=== PATIENT | male | born 1965 | race Caucasian/White ===

== ENCOUNTER 2025-02-09 08:28 | Outpatient (AMB) | payer BC, SELFPAY ==
--- NOTE | 2025-02-09 08:33 | MHC.PC.OV ---
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 Accompanied by: Self / Same As Patient Allergies penicillin G Adverse Reaction (Unknown, Verified 02/09/25 08:34) Unknown shellfish derived (shellfish) Adverse Reaction (Unknown, Verified 02/09/25 08:34) Unknown Sulfa (Sulfonamide Antibiotics) Adverse Reaction (Unknown, Verified 02/09/25 08:34) Unknown sulfamethoxazole (From Bactrim) Adverse Reaction (Unknown, Verified 02/09/25 08:34) Unknown trimethoprim (From Bactrim) Adverse Reaction (Unknown, Verified 02/09/25 08:34) Unknown Medication List - Last Reconciled 02/09/25 by April Preciado MD cholecalciferol (vitamin D3) 1,250 mcg PO QWEEK metoprolol tartrate mg PO Saccharomyces boulardii (Daily Probiotic (S. boulardii)) 250 mg PO DAILY simvastatin 20 mg PO BEDTIME Tobacco use date assessed: 02/09/25 Dental Screening Dental Screen Date: 02/09/25 Did you have a dental visit in the last 12 months?: Yes Did you have a dental problem in the last 6 months where you did not have access to dental care?: No Was dental information given to patient?: Patient has dentist HPI HPI Comments History of Present Illness Details The patient is a 59 year old male presenting to re-establish care and for a physical. Hypertension: He has a history of high blood pressure and is on Metoprolol, taking one pill in the evening and a half in the morning. Variable readings recently in setting of having to have dental procedure. Obstructive Sleep Apnea: He has a history of sleep apnea and has been using a CPAP machine. He has been off the CPAP since before due to facial pain following a tooth extraction. He reports feeling like he is sleeping better without it. He notes having a follow-up appointment scheduled with the sleep clinic. Weight Management: He has successfully lost weight, reaching his lowest weight in 20 years at 189 pounds, down from a high of 211 pounds. The weight loss is attributed to dietary changes, specifically caloric restriction and not eating late, which he started around October. Dental Issues: He had a tooth extracted the Saturday before , which caused significant pain. During the extraction, the oral surgeon nicked an adjacent tooth, which will now require a crown. Cellulitis: In November, he was stung by a bee on the arm, and the site would not heal, becoming smooth and shiny. He went to an urgent care clinic where he was diagnosed with cellulitis and treated with a 21-day course of antibiotics. Hearing Loss: He reports hearing trouble in both ears, which is getting worse. A previous hearing evaluation, the only one he has had, showed moderate to severe hearing loss. Preventative Care: His last colonoscopy was in 2021, following one in 2013. Social History: - Substance Use: Reports alcohol intake, mostly bourbon, from to Saturday. - Exercise: Reports exercising more than previously but acknowledges needing to be better at it. - Nutrition: Follows a diet with caloric restriction, avoiding eating late and chips. Diagnostic Results: - JENNIFER-7: Score of 0. - Depression screening (PHQ): Score of 0. PFSH Medical History (Updated 02/09/25 @ 18:04 by April Preciado MD) Routine medical exam Moderate hearing loss Vitamin B12 deficiency (dietary) anemia Vitamin D deficiency YOLIS (obstructive sleep apnea) Primary hypertension Surgical History (Updated 12/31/24 @ 13:12 by Betzy Hayes) History of colonoscopy (~11/13/21) Family History (Updated 02/09/25 @ 08:35 by Che Baxter CMA) Mother Congestive heart failure Father Diabetes mellitus type 2, uncomplicated Social History Housing: House Patient Tobacco Use Status: Never used Tobacco e-Cigarette/Vaping Use: Never Used service: No Current occupational status: employed Current occupation: [employer] Questionnaire PHQ-9 Over the last 2 weeks, how often have you been bothered by any of the following problems? 1. Little interest or pleasure in doing things: not at all 2. Feeling down, depressed, or hopeless: not at all 3. Trouble falling or staying asleep, or sleeping too much: not at all 4. Feeling tired or having little energy: not at all 5. Poor appetite or overeating: not at all 6. Feeling bad about yourself - or that you are a failure or have let yourself or your family down: not at all 7. Trouble concentrating on things, such as reading the newspaper or watching television: not at all 8. Moving or speaking so slowly that other people could have noticed. Or the opposite - being so fidgety or restless that you have been moving around a lot more than usual: not at all 9. Thoughts that you would be better off or of hurting yourself in some way: not at all Total score: 0 Depression Screening Interpretation: Negative Depression Screening Done: Yes 41161 - PHQ-9 Billing: Yes Source: Developed by Drs. Fady Waddell, Radha Bhatti, Sharif Montejo and colleagues, with an educational eunice from [employer]. Thrive Questionnaire Date Thrive assessed: 02/09/25 I am a: Patient What is your living situation today?: I have a steady place to live Within the past 12 months, did the food you bought not last and you didn't have the money to get more?: Never true Within the past 12 months, did you worry whether your food would run out before you got money to buy more?: Never true Do you have trouble paying for medicines?: No Do you have trouble getting transportation to medical appointments?: No Do you have trouble paying your heating and electricity bill?: No Do you have trouble taking care of your child, family member or friend?: No Do you have trouble with day-to-day activities such as bathing, preparing meals, shopping, managing finances, etc.?: No Are you currently unemployed and looking for a job?: No Are you interested in more education?: No Please select the resources that you would like help with: None Currently or been in a relationship where the following occur: No concerns reported THRIVE Score: 0 AUDIT C Alcohol Use Questionnaire (AUDIT-C) 1. How often do you have a drink containing alcohol?: 2-3 times a week 2. How many drinks containing alcohol do you have on a typical day when you are drinking?: 3 or 4 3. How often do you have six or more drinks on one occasion?: Less than monthly Total Score: 5 JENNIFER-7 AMB Questionnaire JENNIFER-7 Date JENNIFER - 7 assessed: 02/09/25 Feeling nervous, anxious, or on edge: 0 = Not at all Not being able to stop or control worryin = Not at all Worrying too much about different things: 0 = Not at all Trouble relaxin = Not at all Being so restless that it is hard to sit still: 0 = Not at all Becoming easily annoyed or irritable: 0 = Not at all Feeling afraid as if something awful might happen: 0 = Not at all Total JENNIFER-7 score (0-4 normal; 5-9 mild; 10-14 moderate; 15-21 severe): 0 Source: Developed by Drs. Fady Waddell, Radha Bhatti, Sharif Montejo and colleagues, with an educational eunice from [employer]. Review of Systems Narrative Review of Systems - General: Reports feeling good overall. - HEENT: Reports hearing trouble in both ears, which has been getting worse. - Pain: Denies current pain. - Psychiatric: Denies symptoms of anxiety or depression. - Sleep: Reports hit or miss sleep but feels he is sleeping better recently without his CPAP machine. Physical exam (Primary Care) Vital Signs: Last Vital Signs Temp 96.9 F 02/09/25 08:36 Pulse 53 02/09/25 08:36 Resp 16 02/09/25 08:36 BP 140/90 H 02/09/25 08:36 Pulse Ox 97 02/09/25 08:36 Oxygen Delivery Method Room Air 02/09/25 08:36 BMI result Body Mass Index 23.9 Tobacco/Smoking Status: Tobacco use Status Tobacco use date assessed 02/09/25 02/09/25 08:42 Patient Tobacco Use Status Never used Tobacco 02/09/25 08:42 e-Cigarette/Vaping Use Never Used 02/09/25 08:42 PHQ-9: PHQ-9 Score PHQ-9: Total score 0 02/09/25 09:03 Depression Screening Interpretation: Negative Thrive Assessment: Date of Thrive Assessment Date Thrive assessed 02/09/25 02/09/25 08:42 Currently or been in a relationship where the following occur: No concerns reported Narrative Physical Exam - Vitals: Blood pressure 132/84 mmHg on repeat. - Gen: NAD - HEENT: Bilateral cerumen impaction observed. - Oropharynx: No redness noted. - Neck: No carotid bruits. - Cardiovascular: Regular rate and rhythm, soft murmur noted - Lungs: Clear to auscultation bilaterally. - Abdomen: Nondistended, normal bowel sounds, no tenderness to palpation. - Extremities: No lower extremity edema. Coding Level of Care Code Est Pt Prev Care 40-64y(02201) Add On Preventative Visit Only Diagnoses Primary hypertension I10 YOLIS (obstructive sleep apnea) G47.33 Routine medical exam Z00.00 Additional Codes PHQ-9 - 50786 - PHQ-9 Billing: Yes ([id number]) Assessment & Plan Assessment & Plan (1) Primary hypertension: Code(s): I10 - Essential (primary) hypertension Category: Medical (2) YOLIS (obstructive sleep apnea): Code(s): G47.33 - Obstructive sleep apnea (adult) (pediatric) Category: Medical (3) Routine medical exam: Code(s): Z00.00 - Encounter for general adult medical examination without abnormal findings Category: Medical Plan Assessment and Plan 1. Hypertension - Blood pressure is elevated in office at 132/84 mmHg despite medication. - The patient will monitor his blood pressure and heart rate at home in the morning and evening for one to two weeks and send the log for review. - Adjustments to medication may be considered if systolic is consistently >130 mmHg or diastolic is >80 mmHg, especially after resuming CPAP therapy. - He was counseled to reduce alcohol intake to no more than 7 drinks per week, as this may be contributing. 2. Obstructive Sleep Apnea - The patient will resume using his CPAP machine once his dental issues resolve. - He is advised to contact the sleep clinic to discuss his progress and potentially undergo a re-evaluation to see if CPAP is still necessary or if settings need adjustment. 3. Hypercholesterolemia - He is currently taking a statin. - A fasting lipid panel is ordered to assess the impact of his recent weight loss. 4. Cerumen Impaction and Hearing Loss - The patient has impacted cerumen in both ears. - He is instructed to use Debrox drops in both ears for four days, followed by a gentle flush, to remove the wax. - A referral will be placed for a formal hearing evaluation. 5. Health Maintenance - The patient is due for labs and screenings. - Fasting labs were ordered, including a CBC, CMP, lipid panel, vitamin D, and B12 levels, along with a urinalysis for microalbuminuria. - A referral will be placed for a colonoscopy, will obtain pathology report to confirm interval for next colonoscopy. - Follow-up is scheduled in six months to monitor blood pressure. Plan - The patient will monitor his blood pressure and heart rate at home for 1-2 weeks and report the readings. - The patient was advised to reduce his alcohol intake to no more than 7 drinks per week to help manage his blood pressure. - Orders for fasting labs, including CBC, CMP, lipids, vitamin D, B12, and a urinalysis, have been placed. - The patient will resume using his CPAP machine once his dental issues resolve and will contact the sleep clinic for a potential re-evaluation. - The patient was instructed on how to use Debrox drops to treat bilateral cerumen impaction. - A referral for a hearing evaluation will be submitted. Discussion Notes Patient Instructions - Check your blood pressure and heart rate at home twice a day (morning and evening) for the next 1-2 weeks and send the results to our office. - Limit your alcohol intake to no more than 7 drinks per week. - Go to the lab for fasting blood work, which means no food or drink (except water) for 8-10 hours beforehand. - Contact the sleep clinic for a follow-up appointment to discuss your CPAP needs, especially since you have lost weight. Orders: Orders Vitamin D 25-OH Total Today D51.8 - Other vitamin B12 deficiency anemias, E55.9 - Vitamin D deficiency, unspecified, I10 - Essential (primary) hypertension Comprehensive Met. Panel Today D51.8 - Other vitamin B12 deficiency anemias, E55.9 - Vitamin D deficiency, unspecified, I10 - Essential (primary) hypertension Vitamin B12 Today D51.8 - Other vitamin B12 deficiency anemias, E55.9 - Vitamin D deficiency, unspecified, I10 - Essential (primary) hypertension Microalbumin, Random (w Creat) Today D51.8 - Other vitamin B12 deficiency anemias, E55.9 - Vitamin D deficiency, unspecified, I10 - Essential (primary) hypertension Complete Blood Count Auto Diff Today D51.8 - Other vitamin B12 deficiency anemias, E55.9 - Vitamin D deficiency, unspecified, I10 - Essential (primary) hypertension Lipid Panel Today D51.8 - Other vitamin B12 deficiency anemias, E55.9 - Vitamin D deficiency, unspecified, I10 - Essential (primary) hypertension Referrals Speech and Hearing Referral H91.90 - Unspecified hearing loss, unspecified ear Medications: New metoprolol tartrate 1/2 tab by mouth in the morning, 1 tab by mouth at night 135 tabs 3RF 90 days simvastatin 20 mg PO BEDTIME 90 tabs 3RF
[2025-02-09 08:36] VITALS: BP 140/90; PULSE 53; RESP 16; TEMP 36.1; O2SAT 97; BMI 23.9
== END 2025-02-09 09:21 | disposition home or self-care (01) ==
LOC: HO.HMCHD 08:30
PROVIDERS: PCP Internal Medicine; Visit Provider Internal Medicine
DX: Z00.00 Encounter for general adult medical examination without abnormal findings (principal); I10 Essential (primary) hypertension; G47.33 Obstructive sleep apnea (adult) (pediatric)

== ENCOUNTER → 2025-02-09 08:28 | Outpatient (BNVA) | payer BC, SELFPAY | PROVIDERS: PCP Internal Medicine; Visit Provider Internal Medicine | DX: Z00.00 Encounter for general adult medical examination without abnormal findings (principal); I10 Essential (primary) hypertension; G47.33 Obstructive sleep apnea (adult) (pediatric); D51.8 Other vitamin B12 deficiency anemias; E55.9 Vitamin D deficiency, unspecified; E78.00 Pure hypercholesterolemia, unspecified; H91.93 Unspecified hearing loss, bilateral; Z13.31 Encounter for screening for depression; Z13.39 Encounter for screening examination for other mental health and behavioral disorders | CPT/HCPCS: 96127 ==

== ENCOUNTER 2025-02-12 07:35 | Outpatient (REF) | payer BC, SELFPAY ==
[2025-02-12 12:41] LABS: MANUAL DIFF FLAG NO
[2025-02-12 12:58] LABS: Hematocrit 45.4 % (42.0-52.0); Hemoglobin 15.5 g/dl (14.0-18.0); Imm Gran Abs Auto 0.01 X10*3/uL (0.00-0.03); Imm Gran Pct Auto 0.2 % (0.0-0.4); Lymphocytes Absolute Auto 1.4 X10*3/uL (1.2-4.9); Mean Corpuscular HGB Conc 34.1 g/dl (31.0-36.0); Mean Corpuscular Hemoglobin 32.7 pg (27.0-33.0); Mean Corpuscular Volume 95.8 fL (80.0-98.0); NRBC Abs Auto 0.000 X10*3/uL (0.0-0.012); NRBC Pct Auto 0.0 /100WBC (0.0-0.2); Platelet Count 146 X10*3/uL (160-400); Red Blood Count 4.74 X10*6/uL (4.60-5.80); White Blood Count 4.5 X10*3/uL (4.8-10.8)
[2025-02-12 13:44] LABS: Alanine Aminotransferase 31 U/L (0-40); Albumin Level 4.4 g/dL (3.5-5.0); Alkaline Phosphatase 53 U/L (39-117); Anion Gap 11 (12-20); Aspartate Amino Transferase 26 U/L (5-37); Blood Urea Nitrogen 15 mg/dL (9-16); Calcium 9.2 mg/dL (8.4-10.2); Carbon Dioxide 27 mmol/L (22-29); Chloride 105 mmol/L (96-108); Cholesterol 172 mg/dL (<200); Estimated Glomerular Filt Rate > 60; HDL Cholesterol 52 mg/dL (>40); Potassium 4.3 mmol/L (3.3-5.1); Sodium 139 mmol/L (135-145); Total Protein 6.7 g/dL (6.5-8.0); Triglycerides 114 mg/dL (<150)
[2025-02-12 13:57] LABS: Microalbum/Creatinine Ratio Ur 3.7 ug/mg cr (<30)
[2025-02-12 14:18] LABS: Vitamin B12 260 pg/mL (200-900)
== END 2025-02-12 07:36 | disposition home or self-care (01) ==
LOC: HO.WFDLDS 07:35
PROVIDERS: Visit Provider Internal Medicine
DX: I10 Essential (primary) hypertension (principal); E55.9 Vitamin D deficiency, unspecified; D51.8 Other vitamin B12 deficiency anemias
CPT/HCPCS: 36415; 80053; 80061; 82043; 82306; 82570; 82607; 85025